=== PATIENT | female | born 1960 | race Caucasian/White ===

== ENCOUNTER 2020-03-21 10:44 | Inpatient (IN) | payer OTHER ==
[~2020-03-21] VITALS: Ht 162.6 cm; Wt 79.8 kg
[2020-03-21] MEDS ORDERED: IV NORMAL SALINE 500ML 500 ML IV ONE (11:00)
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
[2020-03-21] MEDS ORDERED: IV NORMAL SALINE 1,000ML 1,000 ML IV ONE (11:15)
[2020-03-21 11:32] LABS: BASO % 0 % (0-3); EOS % 0 % (0-3); HEMATOCRIT 33.9 % (36.0-47.0); HEMOGLOBIN 11.2 g/dL (12.0-15.5); LYMPH # 0.8 x10^3/uL (1.0-4.8); LYMPH % 5 % (24-48); MEAN CORPUSCULAR HEMOGLOBIN 30 pg (25-35); MEAN CORPUSCULAR HGB CONC 33 g/dL (31-37); MEAN CORPUSCULAR VOLUME 91 fL (79-100); MONO # 1.3 x10^3/uL (0.0-1.1); MONO % 8 % (0-9); NEUT # 13.3 x10^3uL (1.8-7.7); NEUT % 86 % (31-73); PLATELET COUNT 200 x10^3/uL (140-400); RED BLOOD COUNT 3.74 x10^6/uL (3.50-5.40); RED CELL DISTRIBUTION WIDTH 13.3 % (11.5-14.5); WHITE BLOOD COUNT 15.4 x10^3/uL (4.0-11.0)
[2020-03-21 11:39] LABS: CALCIUM 9.2 mg/dL (8.5-10.1); CREATININE 2.2 mg/dL (0.6-1.0); GFR 22.8; POTASSIUM 3.3 mmol/L (3.5-5.1)
--- NOTE | 2020-03-21 11:39 | RAD ---
Chest AP portable at 1127: Reason for examination: Dizziness. The heart size is normal. Mediastinum is unremarkable. Lung beck are clear. No acute bony abnormalities are seen. Impression: No acute cardiopulmonary disease. Electronically signed by: Palak Valdes MD (03/21/2020 11:36 AM) [id number]
--- NOTE | 2020-03-21 11:45 | RAD ---
CT Head W/O Contrast: History: Reason: DIZZINESS Comparison: none Axial images were obtained without contrast. The mullins and white matter appears normal and symmetrical for the patients age. There is no mass effect, extraaxial fluid collections or hydrocephalus. There is no gross bleed. There is no focal loss of mullins-white matter distinction to suggest acute ischemia, i.e. stroke. Impression: No acute findings. RS Compliance Statement: One or more of the following individualized dose reduction techniques were utilized for this examination: 1. Automated exposure control 2. Adjustment of the mA and/or kV according to patient size 3. Use of iterative reconstruction technique Electronically signed by: Kingston Zuluaga III, MD (03/21/2020 11:41 AM) [facility]
[2020-03-21] MEDS ORDERED: METOPROLOL SUCC 24HR ER 25 MG TAB.ER.24H. PO ONE (12:45)
[2020-03-21 12:59] LABS: BACTERIA,URINE MOD /HPF (0-FEW); BILIRUBIN,URINE NEG (NEG); CLARITY,URINE CLOUDY; COLOR,URINE YELLOW; GLUCOSE,URINE NEG (NEG); NITRITE,URINE POS (NEG); SQUAMOUS EPITHELIAL CELL,UR FEW /LPF; WBC,URINE >40 /HPF (0-4)
[2020-03-21] MEDS ORDERED: IV NORMAL SALINE 50ML 50 ML ONE (13:28)
[2020-03-21] MEDS ORDERED: cefTRIAXone SODIUM 1 GM VIAL ONE (13:29)
[2020-03-21 13:53] LABS: % LYMPHS 6 % (24-48); % MONOS 8 % (0-10); % SEGS 86 % (35-66); PLT ESTIMATE ADEQUATE (ADEQUATE)
[2020-03-21] MEDS ORDERED: traMADol 50 MG TABLET PO ONE (14:30)
[2020-03-21] MEDS ORDERED: POTASSIUM CHLORIDE 20 MEQ TABLET.ER. PO ONE (15:30)
[2020-03-21 16:25] VITALS: BP 132/84
[2020-03-21] MEDS ORDERED: TRAM50TA PO (16:34)
[2020-03-21] MEDS ORDERED: GABA600T7 PO ×2 (16:34)
[2020-03-21] MEDS ORDERED: CYCL-331 PO (16:34)
[2020-03-21] MEDS ORDERED: POTASSIUM CL 20MEQ IN 0.9%NACL 1,000 ML IV SCH (17:30)
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
[2020-03-21 19:00] VITALS: BP 111/56
[2020-03-21] MEDS ORDERED: LEVO50TA5 PO (19:11)
[2020-03-21] MEDS: GABAPENTIN 400 MG CAPSULE. PO SCH (21:21)
[2020-03-21] MEDS: ACETAMINOPHEN 325 MG TABLET PO PRN (21:22)
[2020-03-21] MEDS: CYCLOBENZAPRINE 10 MG TABLET. PO SCH (21:22)
[2020-03-21] MEDS: PSEUDOEPHEDRINE ER 120 MG TABLET.ER. PO SCH (21:22)
[2020-03-21] MEDS: traMADol 50 MG TABLET PO SCH (21:22)
[2020-03-21] MEDS: IV NORMAL SALINE 1,000ML 1,000 ML IV SCH (21:32)
[2020-03-21 22:35] VITALS: BP 101/58
--- NOTE | 2020-03-21 22:47 | RAD ---
Exam: CT of abdomen and pelvis without contrast INDICATION: Dysuria, bilateral flank TECHNIQUE: Sequential axial images through the abdomen and pelvis obtained without IV contrast. Sagittal and coronal reformatted images were reconstructed from the axial data and reviewed. Comparisons: None FINDINGS: Heart size is normal. No pleural effusion. No pericardial effusion. Visualized lung bases are clear. Evaluation of solid organs limited secondary to noncontrast technique. Diffuse hepatic steatosis. Spleen, pancreas, gallbladder and adrenals are unremarkable. There is mild bilateral perinephric stranding. No renal or ureteral calculi are identified. Bladder is decompressed not well evaluated. Uterus is absent. No abnormal adnexal mass. Large and small bowel are unremarkable. Appendix is normal. No free intra-abdominal air or fluid. No obstruction. Abdominal aorta has normal course and caliber. Abdominal vasculature is patent. No enlarged abdominal lymph nodes are identified. No suspicious osseous lesions or acute fractures. IMPRESSION: 1. Bilateral perinephric fat stranding, nonspecific. Correlate with urinalysis for infection. 2. Diffuse hepatic steatosis. Exposure: One or more of the following in the visualized dose reduction techniques were utilized for this examination: 1. Automated exposure control 2. Adjustment of the MA and/or KV according to patient size 3. Use of iterative of reconstructive technique Electronically signed by: Chelsey Bowman MD (03/21/2020 10:44 PM) [facility]
[2020-03-22] MEDS: IV NORMAL SALINE 1,000ML 1,000 ML IV SCH ×2 (06:15→13:42)
[2020-03-22] MEDS: ACETAMINOPHEN 325 MG TABLET PO PRN ×2 (06:16→15:40)
[2020-03-22 06:25] VITALS: BP 149/57
[2020-03-22 06:33] LABS: HEMATOCRIT 32.9 % (36.0-47.0); HEMOGLOBIN 10.7 g/dL (12.0-15.5); RED BLOOD COUNT 3.61 x10^6/uL (3.50-5.40); RED CELL DISTRIBUTION WIDTH 13.4 % (11.5-14.5); WHITE BLOOD COUNT 11.1 x10^3/uL (4.0-11.0)
[2020-03-22 06:42] LABS: ALBUMIN 2.3 g/dL (3.4-5.0); ALBUMIN/GLOBULIN RATIO 0.5 (1.0-1.7); CALCIUM 8.4 mg/dL (8.5-10.1); CREATININE 1.7 mg/dL (0.6-1.0); GFR 30.8; POTASSIUM 3.4 mmol/L (3.5-5.1); TOTAL BILIRUBIN 1.4 mg/dL (0.2-1.0); TOTAL PROTEIN 6.8 g/dL (6.4-8.2)
[2020-03-22] MEDS: LEVOTHYROXINE 50 MCG TABLET PO SCH (08:21)
--- NOTE | 2020-03-22 08:38 | EKG ---
[address] [address] Test Date: 2020-03-21 Test Time: 11:07:09 Pat Name: GAY SHELDON Department: Room: 120 A Gender: F Manager Electronic: ALFONSO : 1960 Requested By: FAVIOLA NELSON Order Number: [id number] Reading MD: Measurements Intervals [place] Rate: 106 P: 27 IA: 124 QRS: 26 QRSD: 86 T: 33 QT: 312 QTc: 416 Interpretive Statements SINUS TACHYCARDIA OTHERWISE NORMAL ECG RI6.02 No previous ECG available for comparison
[2020-03-22] MEDS: traMADol 50 MG TABLET PO SCH ×3 (09:01→22:41)
[2020-03-22] MEDS: CYCLOBENZAPRINE 10 MG TABLET. PO SCH ×3 (09:01→22:40)
[2020-03-22] MEDS: PSEUDOEPHEDRINE ER 120 MG TABLET.ER. PO SCH ×2 (09:01→22:41)
[2020-03-22] MEDS: LACTOBACILLUS RHAMNOSUS GG 1 CAPSULE. PO SCH ×2 (09:01→22:40)
[2020-03-22] MEDS: GABAPENTIN 300 MG CAPSULE. PO SCH ×2 (09:02→13:59)
[2020-03-22 11:00] VITALS: BP 114/56
[2020-03-22] MEDS: POTASSIUM CHLORIDE 20 MEQ TABLET.ER. PO SCH ×2 (13:57→22:40)
[2020-03-22 15:42] VITALS: BP 109/57
[2020-03-22] MEDS: PIPERACILLIN/TAZOBACTAM 2.25 GM in IV NORMAL SALINE 50ML 50 ML IV SCH ×2 (16:29→22:42)
[2020-03-22 19:55] VITALS: BP 111/56
--- NOTE | 2020-03-22 20:03 | PN ---
DATE: 03/22/2020 SUBJECTIVE: The patient is sitting on the edge of the bed comfortably in no apparent distress. She continued to have complaining of headache and also pain in both flank area. PHYSICAL EXAMINATION: GENERAL: When I examined her, she looked somewhat pale, but no jaundice or cyanosis. No lymphadenopathy, no thyromegaly. No jugular venous distention. No limb edema. VITAL SIGNS: Her heart rate was 102, blood pressure was 114/56, temperature was 96.3, although this morning it went up to 101.7, respiratory rate was 17 and oxygen saturation was 93%. HEAD, EYES, EARS, NOSE AND THROAT: Showed normocephalic, atraumatic. NECK: Supple. HEART: Showed normal first and second heart sounds. No gallop, rub or murmur. CHEST: Clear to auscultation. No crepitation or rhonchi. ABDOMEN: Distended, soft, nontender. There is some tenderness in both flank areas. NEUROLOGIC: She is definitely more awake, alert, responding appropriately. All cranial nerves are intact. She moves extremities without difficulty. She ambulates without assistance or assistive devices. LABORATORY DATA: Her lab work this morning showed a white cell count of 11,100, hemoglobin 11, hematocrit 33, MCV 91, and platelet count of 181,000. Serum sodium was 132, potassium 3.4, chloride 98, bicarbonate 24, anion gap of 10, BUN 27, creatinine 1.7. Estimated GFR was 30 mL per minute. Her glucose was 77, calcium was 8.4. Total bilirubin, AST, ALT, alkaline phosphatase were normal. Total protein was 6.8, albumin 2.3. ASSESSMENT: 1. The patient presented with dysuria and bilateral flank pain and her CT scan is consistent with pyelonephritis. 2. Acute on chronic kidney injury is improving. Her creatinine came down from 2.2 to 1.7. She continued to have hyponatremia, hypokalemia. PLAN: My plan is to increase her potassium supplement. Continue with IV antibiotic. Monitor her lab work and await the result of the COVID-19 swab. EDWARD JOHN MD DR: DANIEL/sid JOB#: [id number] / [id number]
[2020-03-22 22:22] VITALS: BP 115/56
[2020-03-22] MEDS: GABAPENTIN 400 MG CAPSULE. PO SCH (22:41)
[2020-03-23] MEDS: PIPERACILLIN/TAZOBACTAM 2.25 GM in IV NORMAL SALINE 50ML 50 ML IV SCH ×4 (04:30→22:28)
[2020-03-23 05:00] VITALS: BP 109/55
[2020-03-23 05:37] LABS: HEMATOCRIT 27.1 % (36.0-47.0); HEMOGLOBIN 8.9 g/dL (12.0-15.5); RED BLOOD COUNT 2.97 x10^6/uL (3.50-5.40); RED CELL DISTRIBUTION WIDTH 13.5 % (11.5-14.5); WHITE BLOOD COUNT 12.5 x10^3/uL (4.0-11.0)
[2020-03-23 05:47] LABS: ALBUMIN 1.9 g/dL (3.4-5.0); ALBUMIN/GLOBULIN RATIO 0.5 (1.0-1.7); CALCIUM 7.8 mg/dL (8.5-10.1); CREATININE 1.5 mg/dL (0.6-1.0); GFR 35.5; POTASSIUM 3.5 mmol/L (3.5-5.1); TOTAL BILIRUBIN 0.8 mg/dL (0.2-1.0); TOTAL PROTEIN 5.7 g/dL (6.4-8.2)
[2020-03-23] MEDS: CYCLOBENZAPRINE 10 MG TABLET. PO SCH ×3 (09:52→20:54)
[2020-03-23] MEDS: GABAPENTIN 300 MG CAPSULE. PO SCH ×2 (09:53→13:10)
[2020-03-23] MEDS: PSEUDOEPHEDRINE ER 120 MG TABLET.ER. PO SCH ×2 (09:53→20:55)
[2020-03-23] MEDS: traMADol 50 MG TABLET PO SCH ×3 (09:53→20:55)
[2020-03-23] MEDS: LACTOBACILLUS RHAMNOSUS GG 1 CAPSULE. PO SCH ×2 (09:53→20:54)
[2020-03-23] MEDS: LEVOTHYROXINE 50 MCG TABLET PO SCH (09:53)
[2020-03-23] MEDS: POTASSIUM CHLORIDE 20 MEQ TABLET.ER. PO SCH ×3 (09:53→20:54)
[2020-03-23 10:15] VITALS: BP 115/56
[2020-03-23] MEDS: IV NORMAL SALINE 1,000ML 1,000 ML IV SCH ×3 (12:43→19:01)
[2020-03-23 15:00] VITALS: BP 124/62
[2020-03-23] MEDS: ACETAMINOPHEN 325 MG TABLET PO PRN (18:07)
[2020-03-23 19:54] VITALS: BP 100/50
[2020-03-23 20:04] LABS: INFLUENZA A PATIENT NEGATIVE (NEGATIVE); INFLUENZA B PATIENT NEGATIVE (NEGATIVE)
[2020-03-23] MEDS: GABAPENTIN 400 MG CAPSULE. PO SCH (20:54)
[2020-03-23 22:43] VITALS: BP 102/63
--- NOTE | 2020-03-24 01:06 | PN ---
DATE: 03/23/2020 SUBJECTIVE: The patient is resting, slightly propped up in bed, in no apparent respiratory distress. Her COVID-19 by PCR was negative. Her urine culture has grown more than 100,000 colony-forming units per mL of Escherichia coli, sensitive to almost all antibiotics. She is actually now on piperacillin and tazobactam. Unfortunately despite this, she continued to spike a fever up to 102. She denied any other tenderness and the flank area has largely resolved. She denied any headache. Denied any cough, phlegm or hemoptysis. PHYSICAL EXAMINATION: GENERAL: When I examined her this afternoon, she actually looked well and was clearly in no apparent respiratory distress. She was pale. No jaundice, cyanosis or thyromegaly. No jugular venous distention. No lower limb edema. VITAL SIGNS: Her heart rate was 102, blood pressure was 124/62, temperature was 102, respiratory rate was 17. Oxygen saturation was 98% on 2 liters of oxygen. HEAD, EYES, EARS, NOSE AND THROAT: Showed normocephalic, atraumatic. NECK: Supple. There is definitely no evidence of neck rigidity. Kernig's sign was negative. HEART: Showed normal first and second heart sounds. No gallop, rub or murmur. CHEST: Clear to auscultation. No crepitation or rhonchi. ABDOMEN: Distended, soft, nontender. NEUROLOGIC: She is awake and alert, responding appropriately. All cranial nerves are intact. She moves extremities without difficulty. She ambulates without assistance or assistive devices. Her intake over the last 24 hours was 415 and output was recorded. LABORATORY DATA: As of this morning showed white cell count of 12,500 and hemoglobin 8.9, hematocrit 27, MCV 91 and platelet count 206,000. Her chemistry showed serum sodium 134, potassium 3.5, chloride 101, bicarbonate 24, anion gap of 9. BUN 21, creatinine 1.5, estimated GFR was 36 mL per minute. Her glucose was 72, calcium was 7.8. Total bilirubin, AST, ALT, alkaline phosphatase were normal. Her total protein was 5.7, albumin was 1.9. Urinalysis showed more than 40 wbc's; large, leukocyte esterase and a moderate amount of bacteria. Her coronavirus-PCR was negative. Her urine culture has grown more than 100,000 colony-forming units per mL of gram-negative rods identified as Escherichia coli, sensitive to almost all antibiotics. She is now on piperacillin and tazobactam. I am not sure why she is still spiking her temperature and whether this is fever due to antibiotic itself. PLAN: My plan is to swab her for influenza A and B. She seems to be subjectively much improved today and I was actually planning to discharge her home. I will definitely also do blood culture to cover all the possibilities and she would be obviously evaluated tomorrow by Dr. Chan to decide whether she can be discharged home. ASSESSMENT: 1. The patient presented with dysuria, bilateral flank pain and CT scan consistent with pyelonephritis. Her urine culture has grown more than 100,000 colony-forming units per mL, sensitive to oral antibiotic. She is now on Zosyn 2.25 grams IV every 6 hours. 2. Acute on chronic kidney injury, is improving. Her creatinine came down from 2.2 to 1.3. 3. Hypomagnesemia and hypokalemia, resolved. Her potassium is up to 3.5. Other medical problems include hypothyroidism and generalized osteoarthritis. EDWARD JOHN MD DR: DANIEL/sid JOB#: [id number] / [id number]
[2020-03-24] MEDS: PIPERACILLIN/TAZOBACTAM 2.25 GM in IV NORMAL SALINE 50ML 50 ML IV SCH ×2 (05:14→10:56)
[2020-03-24 05:32] VITALS: BP 105/65
[2020-03-24] MEDS: IV NORMAL SALINE 1,000ML 1,000 ML IV SCH (06:07)
[2020-03-24 06:28] LABS: CALCIUM 7.9 mg/dL (8.5-10.1); CREATININE 1.5 mg/dL (0.6-1.0); GFR 35.5; POTASSIUM 3.5 mmol/L (3.5-5.1)
[2020-03-24] MEDS: CYCLOBENZAPRINE 10 MG TABLET. PO SCH (08:21)
[2020-03-24] MEDS: GABAPENTIN 300 MG CAPSULE. PO SCH (08:21)
[2020-03-24] MEDS: PSEUDOEPHEDRINE ER 120 MG TABLET.ER. PO SCH (08:22)
[2020-03-24] MEDS: traMADol 50 MG TABLET PO SCH (08:22)
[2020-03-24] MEDS: POTASSIUM CHLORIDE 20 MEQ TABLET.ER. PO SCH (08:22)
[2020-03-24] MEDS: LACTOBACILLUS RHAMNOSUS GG 1 CAPSULE. PO SCH (08:22)
[2020-03-24] MEDS: LEVOTHYROXINE 50 MCG TABLET PO SCH (08:22)
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
[2020-03-24 10:52] VITALS: BP 111/82
== END 2020-03-24 12:35 | disposition home or self-care (01) | DRG 683 ==
LOC: ER 10:44 → 1 SOUTH 13:30
PROVIDERS: ADMIT Internal Medicine; ATTEND Internal Medicine
DX: N17.9 Acute kidney failure, unspecified (principal); E87.1 Hypo-osmolality and hyponatremia; N10 Acute pyelonephritis; Z20.828 Contact with and (suspected) exposure to other viral communicable diseases; G89.4 Chronic pain syndrome; E03.9 Hypothyroidism, unspecified; N18.9 Chronic kidney disease, unspecified; E87.6 Hypokalemia; E83.42 Hypomagnesemia; E86.0 Dehydration; M15.9 Polyosteoarthritis, unspecified; B96.20 Unspecified Escherichia coli [E. coli] as the cause of diseases classified elsewhere; Z88.6 Allergy status to analgesic agent; Z88.8 Allergy status to other drugs, medicaments and biological substances; Z90.49 Acquired absence of other specified parts of digestive tract; Z87.81 Personal history of (healed) traumatic fracture; Z87.891 Personal history of nicotine dependence; Z87.828 Personal history of other (healed) physical injury and trauma; Z79.899 Other long term (current) drug therapy; Z80.8 Family history of malignant neoplasm of other organs or systems
CPT/HCPCS: 36415; 70450; 71045; 74176; 80048; 80053; 81001; 84443; 84484; 85007; 85025; 85027; 87040; 87077; 87086; 87186; 87804; 93005; J0696; J2543; U0003; 99285-25; J7030

== ENCOUNTER → 2020-08-12 | Outpatient (CLI) | payer OTHER ==
[~2020-08-12] MED LIST: CYCL-331 PO; GABA600T7 PO; LEVO50TA5 PO; TRAM50TA PO
--- NOTE | 2020-08-12 13:06 | RAD ---
EXAM: Bilateral digital screening mammogram with tomosynthesis. HISTORY: 59-year-old female presents for screening mammography. TECHNIQUE: Full-field digital craniocaudal and mediolateral oblique 2D and 3D tomosynthesis images of both breasts are obtained for evaluation. Computer aided detection was applied. COMPARISON: 12/02/2012 BREAST PARENCHYMAL DENSITY: Level B - Scattered fibroglandular densities. FINDINGS: There is no new suspicious mass, microcalcification or region of architectural distortion. There are stable areas of asymmetry within both breasts, allowing for differences in imaging techniqu e. There are benign calcifications within both breasts. IMPRESSION: BI-RADS Category 2: Benign finding(s). RECOMMENDATION: Annual mammography is recommended. If your mammogram demonstrates that you have dense breast tissue, which could hide abnormalities, and if you have other risk factors for breast cancer that have been identified, you might benefit from s upplemental screening tests that may be suggested by your ordering physician. Dense breast tissue, i n and of itself, is a relatively common condition. This information is not provided to cause undue c oncern, but rather to raise your awareness and to promote discussion with your physician regarding th e presence of other risk factors, in addition to dense breast tissue. A report of your mammography re sults will be sent to you and your physician. You should contact your physician if you have any ques tions or concerns regarding this report. Mammography is a sensitive method for finding small breast cancers, but it does not detect them all a nd is not a substitute for careful clinical examination. A negative mammogram does not negate a clin ically suspicious finding and should not result in delay in biopsying a clinically suspicious abnorma lity. PQRS compliance statement - Patient information was entered into a reminder system with a target due date for the next mammogram. "Our facility is accredited by the [employer] Mammography [employer]." Electronically signed by: Nelli Contreras MD (08/12/2020 1:04 PM) [id number]
== END ==
LOC: MAMMO 10:29
PROVIDERS: ATTEND Physician Assistant Medical
DX: Z12.31 Encounter for screening mammogram for malignant neoplasm of breast (principal)
CPT/HCPCS: 77063; 77067

== ENCOUNTER → 2021-02-22 | Outpatient (CLI) | payer OTHER ==
[~2021-02-22] MED LIST changes: -CYCL-331 PO; +CYCL10TA19 PO
--- NOTE | 2021-02-22 16:17 | RAD ---
INDICATION: Screening for osteopenia/osteoporosis. Postmenopausal screening COMPARISON: None. TECHNIQUE: Bone densitometry was performed through the lumbar spine and proximal femur. IMPRESSION: Lumbar Spine: BMD: 1.2 T-Score: 0.6 Range: Normal Proximal Femur: BMD: 0.79 T-Score: -1.4 Range: Osteopenic World Health Organization Criteria for Bone Density: T-Score: > -1.0: Normal Range < -1.0 to -2.5: Osteopenic Range < -2.5: Osteoporotic Range Electronically signed by: Demetri Price MD (02/22/2021 4:15 PM) [id number]
== END ==
LOC: DXRAD 15:00
PROVIDERS: ATTEND Physician Assistant Medical
DX: M85.88 Other specified disorders of bone density and structure, other site (principal); Z78.0 Asymptomatic menopausal state
CPT/HCPCS: 77080